=== PATIENT | female | born 2000 | race Caucasian/White ===

== ENCOUNTER 2020-09-07 15:58 | Emergency (ER) | payer BC ==
[~2020-09-07] VITALS: Ht 170.2 cm; Wt 109.1 kg
[2020-09-07 16:04] VITALS: TEMP 97.8
[2020-09-07] MEDS ORDERED: IRON TABLETS325 MG PO (16:31)
[2020-09-07] MEDS ORDERED: PROTONIX 40MG T40 MG PO (16:31)
[2020-09-07] MEDS ORDERED: ZOLOFT 100MG100 MG PO (16:31)
[2020-09-07] MEDS ORDERED: VITAMIND3 5000 PO (16:33)
[2020-09-07 16:40] LABS: BASO # 0.1 (0.0-0.2); BASO % 0.6 % (0.0-2.0); EOS # 0.2 (0.0-0.7); GRAN # 6.5 (1.4-6.5); GRAN % 64.6 % (42.2-75.2); HEMATOCRIT 43.8 % (37.0-47.0); HEMOGLOBIN 14.1 g/dl (12.5-16.0); LYMPH # 2.7 (1.2-3.4); LYMPH % 26.5 % (20.0-51.0); MEAN CELL VOLUME 78 fl (80.0-100.0); MEAN CORPUSCULAR HEMOGLOBIN 25 pg (27.0-31.0); MEAN CORPUSCULAR HGB CONC 32 g/dl (33.0-37.0); MONO # 0.6 (0.1-0.6); MONO % 5.5 % (1.7-9.3); PLATELET COUNT 381 K/mm3 (130-400); RED BLOOD COUNT 5.63 M/mm3 (4.10-5.30); REDCELL DISTRIBUTION WIDTH-CV 13.7 % (11.5-14.5)
[2020-09-07 16:56] LABS: ALANINE AMINOTRANSFERASE 17 U/L (4-34); ALBUMIN 4.7 gm/dL (3.5-5.0); ALKALINE PHOSPHATASE 91 U/L (50-136); ANION GAP 12 mmol/L (7-16); AST,SGOT 19 U/L (15-37); BILIRUBIN,TOTAL 0.4 mg/dL (0.0-1.0); BLOOD UREA NITROGEN 15 mg/dL (7-17); CALCIUM 9.7 mg/dL (8.4-10.2); CARBON DIOXIDE 25 mmol/L (22-30); CHLORIDE 103 mmol/L (98-107); CREATININE, serum 0.94 (0.52-1.25); GLUCOSE 93 mg/dL (74-106); POTASSIUM 3.7 mmol/L (3.4-5.0); SODIUM 139 mmol/L (137-145); TOTAL PROTEIN 7.9 gm/dL (6.4-8.2)
[2020-09-07 17:04] LABS: C-REACTIVE PROTEIN < 0.5 mg/dL (0.0-0.9)
[2020-09-07 17:18] LABS: MUCOUS Present /lpf; PH 5 (5-8); SQUAMOUS EPITHELIAL 0-2 /hpf; URINE APPEARANCE Clear; URINE BACTERIA None Seen /hpf; URINE BILIRUBIN Negative (NEGATIVE); URINE BLOOD Negative (NEGATIVE); URINE COLOR Yellow; URINE GLUCOSE Negative (NEGATIVE); URINE KETONE Negative (NEGATIVE); URINE LEUKOCYTE ESTERASE Negative (NEGATIVE); URINE NITRATE Negative (NEGATIVE); URINE PROTEIN(semi-quant) Negative (NEGATIVE); URINE RBC None Seen /hpf; URINE UROBILINOGEN Negative (NEGATIVE); URINE WBC 0-2 /hpf
[2020-09-07 18:14] VITALS: BP 122/78; PULSE 80
[2020-09-07 21:34] LABS: COLLECTION METHOD CLEAN CATCH
== END 2020-09-07 18:15 | disposition home or self-care (01) ==
LOC: COL.ER 15:58
PROVIDERS: Emergency Medicine
DX: R55 Syncope and collapse (principal); Z32.02 Encounter for pregnancy test, result negative
CPT/HCPCS: J7030

== ENCOUNTER 2021-02-11 13:54 | Emergency (ER) | payer BC ==
[~2021-02-11] VITALS: Ht 170.2 cm; Wt 109.1 kg
[~2021-02-11 13:54] MED LIST: IRON TABLETS325 MG PO; PROTONIX 40MG T40 MG PO; VITAMIND3 5000 PO; ZOLOFT 100MG100 MG PO
[2021-02-11 14:08] VITALS: BP 116/96; TEMP 98.1
[2021-02-11 14:54] LABS: COLLECTION METHOD CLEAN CATCH; HEMATOCRIT 38.5 % (37.0-47.0); HEMOGLOBIN 12.4 g/dl (12.5-16.0); MEAN CELL VOLUME 82 fl (80.0-100.0); MEAN CORPUSCULAR HEMOGLOBIN 26 pg (27.0-31.0); MEAN CORPUSCULAR HGB CONC 32 g/dl (33.0-37.0); MEAN PLATELET VOLUME 11.2 fl (7.4-10.4); PLATELET COUNT 294 K/mm3 (130-400); REDCELL DISTRIBUTION WIDTH-CV 14.4 % (11.5-14.5)
[2021-02-11 14:59] LABS: MUCOUS Present /lpf; PH 6 (5-8); URINE APPEARANCE Hazy; URINE BACTERIA Rare /hpf; URINE BILIRUBIN Negative (NEGATIVE); URINE BLOOD Negative (NEGATIVE); URINE COLOR Yellow; URINE GLUCOSE Negative (NEGATIVE); URINE KETONE Trace (NEGATIVE); URINE LEUKOCYTE ESTERASE Trace (NEGATIVE); URINE NITRATE Negative (NEGATIVE); URINE PROTEIN(semi-quant) 1+ (NEGATIVE); URINE RBC 0-2 /hpf; URINE UROBILINOGEN Negative (NEGATIVE)
[2021-02-11 15:01] LABS: ALBUMIN 3.9 gm/dL (3.5-5.0); BILIRUBIN,TOTAL 0.3 mg/dL (0.0-1.0); CALCIUM 9.5 mg/dL (8.4-10.2); CREATININE, serum 0.51 (0.52-1.25); TOTAL PROTEIN 7.2 gm/dL (6.4-8.2)
[2021-02-11 15:14] LABS: EOSINOPHIL 2 % (0-4); HYPOCHROMIA 3+; LYMPHOCYTE 11 % (20.0-51.0); MYELOCYTE 3 % (0-0); NEUTROPHILS 83 % (42.0-75.2); PLATELET ESTIMATE NORMAL (NORMAL)
[2021-02-11 15:47] VITALS: PULSE 82
== END 2021-02-11 15:47 | disposition home or self-care (01) ==
LOC: COL.ER 13:54
PROVIDERS: Nurse Practitioner
DX: O26.892 Other specified pregnancy related conditions, second trimester (principal); R10.30 Lower abdominal pain, unspecified; Z3A.19 19 weeks gestation of pregnancy; Z88.0 Allergy status to penicillin

== ENCOUNTER 2021-06-25 08:00 | Outpatient (CLI) | payer BC, OTHER ==
[~2021-06-25] VITALS: Ht 165.1 cm; Wt 113.6 kg
--- NOTE | 2021-06-25 08:20 | NUR ---
Pt arrives on unit via wheelchair with FOB. States n/v x2 days with diarrhea. Intermittent cramping x 2 days. Denies LOF, vaginal bleeding and reports GFM. EFM and toco applied. VSS. Admission assessment completed. SVE per this RN unchanged from office visit. Dr. Wesley on unit. Reviews FHR strip and report given on pt admission. Orders for CMP, CBC, CC UA, D5 1/2 NS, IV zofran. Pt updated on POC. No questions or concerns at this time.
[2021-06-25 09:00] VITALS: BP 136/86; PULSE 95; TEMP 98.4
[2021-06-25 09:05] LABS: COLLECTION METHOD CLEAN CATCH
[2021-06-25 09:09] LABS: HEMOGLOBIN 10.1 g/dl (12.5-16.0); MEAN CELL VOLUME 74 fl (80.0-100.0); MEAN CORPUSCULAR HEMOGLOBIN 22 pg (27.0-31.0); MEAN CORPUSCULAR HGB CONC 30 g/dl (33.0-37.0); MEAN PLATELET VOLUME 10.8 fl (7.4-10.4); PLATELET COUNT 257 K/mm3 (130-400); RED BLOOD COUNT 4.52 M/mm3 (4.10-5.30); REDCELL DISTRIBUTION WIDTH-CV 16.5 % (11.5-14.5)
[2021-06-25 09:16] LABS: HEMATOCRIT 33.6 % (37.0-47.0)
[2021-06-25 09:18] LABS: ALBUMIN 3.6 gm/dL (3.5-5.0); BILIRUBIN,TOTAL 0.3 mg/dL (0.0-1.0); CALCIUM 9.1 mg/dL (8.4-10.2); CREATININE, serum 0.58 (0.52-1.25); POTASSIUM 3.9 mmol/L (3.4-5.0); TOTAL PROTEIN 6.8 gm/dL (6.4-8.2)
[2021-06-25 09:30] VITALS: BP 122/70; PULSE 84
[2021-06-25 09:30] LABS: MUCOUS Present /lpf; PH 7 (5-8); URINE APPEARANCE Cloudy; URINE BACTERIA Rare /hpf; URINE BILIRUBIN Negative (NEGATIVE); URINE BLOOD Negative (NEGATIVE); URINE COLOR Yellow; URINE GLUCOSE Negative (NEGATIVE); URINE KETONE Negative (NEGATIVE); URINE LEUKOCYTE ESTERASE Negative (NEGATIVE); URINE NITRATE Negative (NEGATIVE); URINE PROTEIN(semi-quant) 1+ (NEGATIVE); URINE UROBILINOGEN Negative (NEGATIVE)
--- NOTE | 2021-06-25 09:50 | NUR ---
Patient given dc instructions. Reviewed bland diet, oral hydration, and labor precuations and kick counts. Reviewed COVID19 negative results. Patient reports she feels better after IVF. Denies quwestions. Leaves ambulatory.
[2021-06-25 10:01] LABS: BAND 6 % (0-10); LYMPHOCYTE 16 % (20.0-51.0); METAMYELOCYTE 2 % (0-0); NEUTROPHILS 72 % (42.0-75.2); PLATELET ESTIMATE NORMAL (NORMAL)
== END 2021-06-25 09:50 | disposition home or self-care (01) ==
LOC: LDR 08:00 → LDRO 08:00 → COL.ER 08:00 → COL.CLI 08:00 → EDSTATUS 08:16 → LDR 08:22 → COL.ER 09:50
PROVIDERS: Obstetrics & Gynecology
DX: O26.893 Other specified pregnancy related conditions, third trimester (principal); R25.2 Cramp and spasm; R19.7 Diarrhea, unspecified; Z3A.36 36 weeks gestation of pregnancy
CPT/HCPCS: OP; J2405

== ENCOUNTER 2021-06-28 10:00 | Outpatient (CLI) | payer BC, OTHER ==
[~2021-06-28] VITALS: Ht 165.1 cm; Wt 113.6 kg
[2021-06-28 09:45] VITALS: BP 151/101; PULSE 131
[2021-06-28 10:00] VITALS: BP 141/79; PULSE 115; TEMP 98.4
--- NOTE | 2021-06-28 10:07 | NUR ---
0945 PATIETN HERE WITH COMPLAINTS OF LEAKING FLUID THIS AM AND HAVING PELVIC PRESSURE. EFM ON FHT 145 BABY VERY ACTIVE. TRACING FHT IN LEFT UPPER ABDOMEN. ASSESSMENT COMPLETED BY JAYNE OSPINA BY THIS NURSE. AMNIOTRACE NEGATIVE. /-3, NO BLEEDING ON GLOVE. PATIENT DENIES NEEDS AT THIS TIME.
[2021-06-28 11:16] LABS: HEMOGLOBIN 10.1 g/dl (12.5-16.0); MEAN CELL VOLUME 73 fl (80.0-100.0); MEAN CORPUSCULAR HEMOGLOBIN 23 pg (27.0-31.0); MEAN CORPUSCULAR HGB CONC 31 g/dl (33.0-37.0); MEAN PLATELET VOLUME 10.3 fl (7.4-10.4); PLATELET COUNT 268 K/mm3 (130-400); RED BLOOD COUNT 4.49 M/mm3 (4.10-5.30); REDCELL DISTRIBUTION WIDTH-CV 16.7 % (11.5-14.5)
[2021-06-28 11:17] LABS: HEMATOCRIT 32.9 % (37.0-47.0)
[2021-06-28 11:20] VITALS: BP 121/72; PULSE 90
--- NOTE | 2021-06-28 11:21 | NUR ---
PATIENT STATES SHE DOESNT HAVE TO VOID AT THIS TIME. WILL TRY LATER.
[2021-06-28 11:39] LABS: ALBUMIN 3.6 gm/dL (3.5-5.0); BILIRUBIN,TOTAL 0.7 mg/dL (0.0-1.0); CALCIUM 9.4 mg/dL (8.4-10.2); CREATININE, serum 0.65 (0.52-1.25); POTASSIUM 3.6 mmol/L (3.4-5.0); TOTAL PROTEIN 6.6 gm/dL (6.4-8.2)
[2021-06-28 11:44] LABS: COLLECTION METHOD CLEAN CATCH
[2021-06-28 11:53] LABS: MUCOUS Present /lpf; PH 6 (5-8); URINE APPEARANCE Cloudy; URINE BACTERIA Rare /hpf; URINE BILIRUBIN Negative (NEGATIVE); URINE BLOOD Negative (NEGATIVE); URINE COLOR Amber; URINE GLUCOSE Negative (NEGATIVE); URINE KETONE 2+ (NEGATIVE); URINE LEUKOCYTE ESTERASE 1+ (NEGATIVE); URINE NITRATE Negative (NEGATIVE); URINE PROTEIN(semi-quant) 2+ (NEGATIVE); URINE UROBILINOGEN Negative (NEGATIVE)
[2021-06-28 11:58] VITALS: BP 124/70; PULSE 92
[2021-06-28 12:30] VITALS: BP 125/79; PULSE 93
--- NOTE | 2021-06-28 12:40 | NUR ---
[address] CALLED TO DR GARCIA AT THIS TIME. ORDERS TO DISMISS TO HOME TO FOLLOW UP WITH DR MCKINNON TOMORROW AM. ALL DISCHARGE INSTRUCTIONS GIVEN TO PATIENT WITH VERBAL UNDERSTANDING
== END 2021-06-28 12:30 ==
LOC: LDRO 10:00
PROVIDERS: Obstetrics & Gynecology
DX: O42.92 Full-term premature rupture of membranes, unspecified as to length of time between rupture and onset of labor (principal); Z3A.39 39 weeks gestation of pregnancy

== ENCOUNTER → 2021-07-03 | Outpatient (CLI) | payer BC, OTHER ==
[~2021-07-03] MED LIST changes: +MOTRIN 800800 MG/TAB PO; +PRENATAL; +ZYRTEC 10MG10 MG PO
== END ==
LOC: ZCOL.LAB
DX: Z20.822 Contact with and (suspected) exposure to COVID-19 (principal)

== ENCOUNTER 2021-07-05 19:21 | Inpatient (IN) | payer BC, OTHER ==
[2021-07-05] VITALS (12 sets, daily range): BP systolic 94–136; BP diastolic 44–83; PULSE 76–107; TEMP 98.8
[~2021-07-05] VITALS: Ht 165.1 cm; Wt 115.0 kg
[~2021-07-05 19:21] MED LIST changes: -MOTRIN 800800 MG/TAB PO; -PRENATAL; -ZYRTEC 10MG10 MG PO
--- NOTE | 2021-07-05 19:30 | NUR ---
1929: PT ARRIVES VIA WHEELCHAIR TO UNIT C/O CONTRACTIONS Q5MIN APART, WORSENING IN INTENSITY SINCE 1599. UNABLE TO BREATHE THROUGH CONTRACTIONS. REPORTS SHE IS SCHEDULED FOR INDUCTION IN THE AM. 40.0 GESTATION TODAY. PLACED ON EFM/TOCO. CONTRACTIONS IRREGULAR/Q5 MINUTES APART. CATEGORY 1 STRIP. SVE 3-4/70/-2. 2099: REPEAT SVE, NO CHANGE. SVE 3-4/70/-2. CALL TO UPDATE . SEE PHYS NOTIFICATION. WILL ADMIT PT TO L&D PER [facility]. PT REQUESTING EPIDURAL ROSIBEL. 2154: PT ASSISTED TO EDGE OF BED FOR EPIDURAL PLACEMENT. DIFFICULTY TRACING EFM/TOCO DUE TO MATERNAL HABITUS AND POSITIONING. VITAL SIGNS STABLE. CONTRACTIONS NOTED UPON PALPATION Q2-3 MINUTES APART. LR BOLUS INFUSING. 2204: SINGLE SHOT ADMINISTERED BY BENITO GORDON. PT TOLERATED PROCEDURE WELL.
[2021-07-05] MEDS ORDERED: ZYRTEC 10MG10 MG PO (19:42)
[2021-07-05] MEDS ORDERED: PRENATAL (19:43)
[2021-07-05 22:26] LABS: MEAN CELL VOLUME 74 fl (80.0-100.0); MEAN CORPUSCULAR HEMOGLOBIN 22 pg (27.0-31.0); MEAN CORPUSCULAR HGB CONC 30 g/dl (33.0-37.0); MEAN PLATELET VOLUME 11.7 fl (7.4-10.4); PLATELET COUNT 219 K/mm3 (130-400); RED BLOOD COUNT 4.52 M/mm3 (4.10-5.30)
[2021-07-05 22:30] LABS: HEMATOCRIT 33.5 % (37.0-47.0)
[2021-07-05 23:03] LABS: ANISOCYTOSIS 1+; BAND 8 % (0-10); EOSINOPHIL 1 % (0-4); HYPOCHROMIA 3+; LYMPHOCYTE 13 % (20.0-51.0); MICROCYTOSIS 1+; NEUTROPHILS 75 % (42.0-75.2); PLATELET ESTIMATE NORMAL (NORMAL)
[2021-07-06] VITALS (66 sets, daily range): BP systolic 109–164; BP diastolic 50–88; PULSE 77–139; TEMP 97.8–98.9
--- NOTE | 2021-07-06 05:00 | NUR ---
PT RESTING THROUGHOUT NIGHT FOLLOWING EPIDURAL PLACEMENT. INTERMITTENT DIFFICULTY TRACING TOCO THROUGHOUT SHIFT DUE TO MATERNAL HABITUS AND POSITION.
[2021-07-06 06:42] LABS: TRICYCLIC ANTIDEPRESS URINE NEGATIVE
--- NOTE | 2021-07-06 10:53 | NUR ---
Late deceleration noted with contraction. SVE per this RN /0. FHR remains in the 100s. Pt repositioned LL. FHR does not improve. Pitocin shut off. LR bolus infusing. FHR noted in the 60s. O2 applied via simple mask at 10L. Pt repositioned ELIZ. FSE applied. Dr. Wesley notified. Provider reviewing strip during episode. Remains on phone. Provider on route to unit. 1100-Dr. Wesley at bedside. SVE per provider unchanged. FHR returns to 110s baseline. Pt repositioned LL. O2 d/c. Pt updated on POC. No questions or concerns at this time.
--- NOTE | 2021-07-06 13:54 | NUR ---
1354- Dr. Wesley on unit to recheck pt. SVE C/100/+1. Pt educated on pushing efforts. Begins pushing with next contraction. Moves vertex well. This RN continues to push with pt. 1420- Dr. Wesley at bedside. Begins pushing with pt. 1456- of viable male infant attended by Dr. Wesley. Cord clamped x2 and cut from umbilicus. Infant dried and placed and maternal abdomen. Care of to nursery staff. Apgars 7/9/9. 1459- of intact placenta. Pitocin bolus infusing per protocol. Fundus firm at umbilicus. Lochia WNL. Second degree laceration repaired by provider. Margarita care performed. New pad applied. Pt updated on plan of care. No questions at this time. Cord gases collected. Placenta taken to pathology. Cord stat sent.
[2021-07-06] MEDS ORDERED: MOTRIN 800800 MG/TAB PO (19:36)
[2021-07-07 03:55] VITALS: BP 126/73; PULSE 99; TEMP 98
[2021-07-07 08:08] VITALS: BP 121/73; PULSE 100; TEMP 97.9
[2021-07-07 12:27] VITALS: BP 133/83; PULSE 110; TEMP 98.7
[2021-07-07 20:00] VITALS: BP 134/63; PULSE 100; TEMP 98.3
[2021-07-08 07:45] VITALS: BP 127/82; PULSE 91; TEMP 98.7
--- NOTE | 2021-07-08 14:17 | NUR ---
SW recieved consult. SW met with patient and FOB in room Patient reports that they are and this is the first baby. Patient reports that she has family in the area who is giving lost of supports. reports that his name is Dewey . Patient's contact is . Patient reports that they have not decided on a anesthesiology tech for baby because they have and they will most likely go on post. Patient reports that she smoked cannabis in the past prior to knowing that she was and has not since then and does not plan on smoking because she does not want anything past to her child. Patient reports that she is preferring to Breastfeed. Patient shares that she does not have any concern taking baby home and family will support. Patient was given resources and educated on role of SW> No concerns identified. NF>
--- NOTE | 2021-07-08 16:30 | NUR ---
Rests in bed, alert. Discharge instructions given, verbalizes understanding.
== END 2021-07-08 17:30 | disposition home or self-care (01) | DRG 806 ==
LOC: LDRO 19:21 → LDR 21:19 → OB 21:19
PROVIDERS: Obstetrics & Gynecology; ADMIT Obstetrics & Gynecology
PROC: 10E0XZZ Delivery of Products of Conception, External Approach (ICD-10-PCS; principal; 2021-07-06)
PROC: 0KQM0ZZ Repair Perineum Muscle, Open Approach (ICD-10-PCS; 2021-07-06)
DX: O13.3 Gestational [pregnancy-induced] hypertension without significant proteinuria, third trimester (principal); O99.324 Drug use complicating childbirth; Z37.0 Single live birth; O77.0 Labor and delivery complicated by meconium in amniotic fluid; O62.0 Primary inadequate contractions; O70.1 Second degree perineal laceration during delivery; O99.344 Other mental disorders complicating childbirth; F41.9 Anxiety disorder, unspecified; F32.9 Major depressive disorder, single episode, unspecified; O99.214 Obesity complicating childbirth; O99.02 Anemia complicating childbirth; D64.9 Anemia, unspecified; F15.90 Other stimulant use, unspecified, uncomplicated; Z3A.40 40 weeks gestation of pregnancy
CPT/HCPCS: J2590; J7120

== ENCOUNTER 2023-11-17 01:16 | Emergency (ER) | payer BC ==
[~2023-11-17] VITALS: Ht 170.2 cm; Wt 109.1 kg
[~2023-11-17 01:16] MED LIST changes: +MOTRIN 800800 MG/TAB PO; +PRENATAL; +ZYRTEC 10MG10 MG PO
[2023-11-17 01:25] VITALS: TEMP 98
[2023-11-17 02:06] LABS: BASO # 0.1 K/mm3 (0.0-0.2); BASO % 0.6 % (0.0-2.0); EOS # 0.4 K/mm3 (0.0-0.7); EOS % 4.3 % (0.0-4.0); GRAN # 4.6 K/mm3 (1.4-6.5); GRAN % 57.1 % (42.2-75.2); HEMATOCRIT 43.1 % (37.0-47.0); HEMOGLOBIN 14.4 g/dl (12.5-16.0); LYMPH # 2.5 K/mm3 (1.2-3.4); LYMPH % 30.6 % (20.0-51.0); MEAN CELL VOLUME 82 fl (80.0-100.0); MEAN CORPUSCULAR HEMOGLOBIN 27 pg (27-31); MEAN CORPUSCULAR HGB CONC 33 g/dl (33.0-37.0); MEAN PLATELET VOLUME 10.1 fl (7.4-10.4); MONO # 0.5 K/mm3 (0.1-0.6); MONO % 6.7 % (1.7-9.3); PLATELET COUNT 260 K/mm3 (130-400); RED BLOOD COUNT 5.29 M/mm3 (4.10-5.30); REDCELL DISTRIBUTION WIDTH-CV 12.6 % (11.5-14.5)
[2023-11-17 02:29] LABS: ALANINE AMINOTRANSFERASE 25 U/L (0-55); ALBUMIN 3.8 gm/dL (3.5-5.0); ALKALINE PHOSPHATASE 65 U/L (40-150); ANION GAP 11 mmol/L (7-16); AST,SGOT 14 U/L (5-34); BILIRUBIN,TOTAL 0.4 mg/dL (0.2-1.2); BLOOD UREA NITROGEN 18 mg/dL (7-19); CALCIUM 9.7 mg/dL (8.4-10.2); CARBON DIOXIDE 20 mmol/L (22-29); CHLORIDE 110 mmol/L (98-107); CREATININE, serum 0.78 mg/dL (0.57-1.11); GLUCOSE 116 mg/dL (70-99); LIPASE 22 U/L (8-78); POTASSIUM 3.7 mmol/L (3.5-4.5); SODIUM 141 mmol/L (136-145); TOTAL PROTEIN 6.7 gm/dL (6.2-8.1)
[2023-11-17 02:42] LABS: TROPONIN-I < 0.010 ng/mL (0.00-0.033)
[2023-11-17] MEDS ORDERED: PROTONIX 40MG T40 MG PO (02:55)
[2023-11-17 02:58] VITALS: BP 138/80; PULSE 87
== END 2023-11-17 03:11 | disposition home or self-care (01) ==
LOC: COL.ER 01:16
PROVIDERS: Nurse Practitioner
DX: R10.13 Epigastric pain (principal); K21.9 Gastro-esophageal reflux disease without esophagitis; Z79.899 Other long term (current) drug therapy